=== PATIENT | female | born 2000 | race Caucasian/White ===

== ENCOUNTER 2020-07-28 15:37 | Day surgery (SDC) | payer BC ==
[~2020-07-28] VITALS: Ht 165.1 cm; Wt 59.0 kg
[2020-07-28] MEDS ORDERED: CHLORHEXIDINE 15 ML UDC MM ONE (16:00)
[2020-07-28] MEDS ORDERED: CHLORHEXIDINE 15 ML UDC ONE (16:05)
[2020-07-28] MEDS ORDERED: MISOPROSTOL 200 MCG TABLET ONE (16:12)
[2020-07-28] MEDS ORDERED: SILVER NITRATE STICK TP ONE ×2 (16:13→19:20)
[2020-07-28] MEDS ORDERED: METHYLERGONOVINE 0.2 MG/ML IM ONE (16:13)
[2020-07-28] MEDS ORDERED: OXYTOCIN 10 UNITS/ML, 1ML ONE (16:13)
[2020-07-28 16:16] LABS: MEAN CORPUSCULAR HEMOGLOBIN 30.7 pg (27.0-34.8); MEAN CORPUSCULAR HGB CONC 34.7 g/dL (32.4-35.8); MEAN PLATELET VOLUME 6.9 fL (7.4-10.4); PLATELET COUNT 246 x10^3/uL (130-400); RED BLOOD COUNT 4.68 x10^6/uL (3.82-5.3); RED CELL DISTRIBUTION WIDTH 12.3 % (9.6-15.2)
[2020-07-28 16:21] VITALS: BP 117/77
[2020-07-28] MEDS ORDERED: LIDOCAINE-MPF 1%, 2ML INFIL ONE (16:30)
[2020-07-28] MEDS ORDERED: LACTATED RINGERS 1,000 ML IV SCH (16:30)
[2020-07-28 16:44] LABS: MD YES
[2020-07-28 17:03] LABS: BAND#(MANUAL) 0.07 x10^3/uL; BANDS%(MANUAL) 1 % (0-7); EOS#(MANUAL) 0.07 x10^3/uL (0.0-0.4); EOS% (MANUAL) 1 % (1-7); LYMPH#(MANUAL) 1.45 x10^3/uL (1-3.4); LYMPHS% (MANUAL) 22 % (22-44); METAMYELOCYTES# (MANUAL) 0.07 x10^3/uL (0-0); METAMYELOCYTES% (MANUAL) 1 % (0-1); MONOS#(MANUAL) 0.46 x10^3/uL (0.3-2.7); MONOS% (MANUAL) 7 % (2-9); SEG#(MANUAL) 4.49 x10^3/uL (1.8-6.8); SEGS% (MANUAL) 68 % (42-75)
[2020-07-28 17:04] LABS: <PLATELET ESTIMATE> ADEQUATE; <PLT MORPHOLOGY> NORMAL PLT MORPH; <RBC MORPHOLOGY> NORMAL
[2020-07-28] MEDS ORDERED: FENTANYL PF 100 MCG/2ML ONE ×2 (18:04→20:02)
[2020-07-28] MEDS ORDERED: MIDAZOLAM 1 MG/ML, 2ML ONE (18:04)
[2020-07-28] MEDS ORDERED: PROPOFOL 50 ML ONE ×2 (18:06→19:02)
[2020-07-28] MEDS ORDERED: METOCLOPRAMIDE 5 MG/ML, 2ML ONE (18:50)
[2020-07-28] MEDS ORDERED: CEFAZOLIN 1,000 MG ONE (18:50)
[2020-07-28] MEDS ORDERED: ONDANSETRON 2MG/ML, 2ML ONE (18:50)
[2020-07-28] MEDS ORDERED: DEXAMETHASONE 4 MG/ML, 1ML ONE (18:50)
[2020-07-28] MEDS ORDERED: MISOPROSTOL 200 MCG TABLET PR ONE (19:20)
[2020-07-28] MEDS ORDERED: IBUP-1222 PO (19:49)
[2020-07-28] MEDS ORDERED: OXYC1TAB14 PO (19:49)
[2020-07-28] MEDS ORDERED: ACETAMINOPHEN 325 MG TABLET ONE (19:56)
[2020-07-28] MEDS ORDERED: OXYcodone 5 MG/5 ML ORAL.SOL UDC ONE (19:57)
[2020-07-28] MEDS ORDERED: FENTANYL PF 100 MCG/2ML IV PRN (20:00)
[2020-07-28] MEDS ORDERED: MEPERIDINE/PF 25MG/0.5ML IVPush PRN (20:00)
[2020-07-28] MEDS ORDERED: ACETAMINOPHEN 325 MG TABLET PO PRN (20:00)
[2020-07-28] MEDS ORDERED: LORazepam 2 MG/ML, 1ML IVPush PRN (20:00)
[2020-07-28] MEDS ORDERED: hydrALAzine 20 MG/ML, 1ML IV PRN (20:00)
[2020-07-28] MEDS ORDERED: EPHEDRINE 50 MG/ML, 1ML IVPush PRN (20:00)
[2020-07-28] MEDS ORDERED: METHOCARBAMOL 1,000 MG in DEXTROSE 5% 100 ML IV PRN (20:00)
[2020-07-28] MEDS ORDERED: LABETALOL 5MG/ML, 20ML IV PRN (20:00)
[2020-07-28] MEDS ORDERED: PROMETHAZINE 25 MG/ML, 1ML IVPush PRN (20:00)
[2020-07-28] MEDS ORDERED: ONDANSETRON 2MG/ML, 2ML IVPush PRN (20:00)
[2020-07-28] MEDS ORDERED: HYDROmorphone 1 MG/ML, 1ML INJ IVPush PRN (20:00)
[2020-07-28] MEDS ORDERED: OXYcodone 5 MG/5 ML ORAL.SOL UDC PO PRN (20:00)
== END 2020-07-28 21:30 | disposition home or self-care (01) ==
LOC: OR 15:37
PROVIDERS: ATTEND Obstetrics & Gynecology
DX: O02.1 Missed abortion (principal); F32.9 Major depressive disorder, single episode, unspecified; F41.9 Anxiety disorder, unspecified; Z79.899 Other long term (current) drug therapy
CPT/HCPCS: 36415; 59820; 85025; 86850; 86900; 88305; J0690; J1100; J2210; J2250; J2405; J2704; J2765; J3010; J2590

== ENCOUNTER 2021-02-03 03:46 | Emergency (ER) | payer BC ==
[~2021-02-03] VITALS: Ht 165.1 cm; Wt 56.7 kg
[~2021-02-03 03:46] MED LIST: IBUP-1222 PO; OXYC1TAB12 PO
--- NOTE | 2021-02-03 04:19 | NUR ---
SPARKER AND PATCHER: PT. AMBULATORY TO ROOM WITH STEADY GAIT. BSC PROVIDED. CLEAN CATCH UA INSTRUCTIONS ALSO PROVIDED TO PT.
[2021-02-03 05:20] LABS: MICROSCOPIC NOT IND
[2021-02-03] MEDS ORDERED: ONDANSETRON 2MG/ML, 2ML IVPush ONE (05:30)
[2021-02-03] MEDS ORDERED: SODIUM CHLORIDE 0.9% 1,000ML IVBOLUS ONE (05:30)
[2021-02-03] MEDS ORDERED: MORPHINE SULFATE 4 MG/ML, 1ML IVPush PRN (05:30)
[2021-02-03 05:32] LABS: BASOPHILS % (AUTO) 1 % (0-1); EOSINOPHILS % (AUTO) 1 % (1-7); LYMPHOCYTES % (AUTO) 30 % (22-44); MEAN CORPUSCULAR HEMOGLOBIN 30.9 pg (27.0-34.8); MEAN CORPUSCULAR HGB CONC 34.9 g/dL (32.4-35.8); MEAN PLATELET VOLUME 7.1 fL (7.4-10.4); MONOCYTES % (AUTO) 8 % (2-9); NEUTROPHILS % (AUTO) 60 % (42-75); PLATELET COUNT 201 x10^3/uL (130-400); RED BLOOD COUNT 4.39 x10^6/uL (3.82-5.3); RED CELL DISTRIBUTION WIDTH 12.7 % (9.6-15.2)
[2021-02-03] MEDS ORDERED: MORPHINE SULFATE 4 MG/ML, 1ML ONE (05:34)
[2021-02-03] MEDS ORDERED: ONDANSETRON 2MG/ML, 2ML ONE (05:34)
[2021-02-03 05:41] LABS: ALANINE AMINOTRANSFERASE 13 U/L (12-78); ALBUMIN 3.5 g/dL (3.4-5.0); ANION GAP 4 mmol/L (5-15); CALCIUM 8.4 mg/dL (8.5-10.1); CHLORIDE 109 mmol/L (98-107); CREATININE 0.54 mg/dL (0.55-1.02)
[2021-02-03 05:46] LABS: ALKALINE PHOSPHATASE 75 U/L (45-117); TOTAL PROTEIN 6.8 g/dL (6.4-8.2)
[2021-02-03] MEDS ORDERED: KETOROLAC 30 MG/1 ML ONE (06:24)
[2021-02-03] MEDS ORDERED: KETOROLAC 30 MG/1 ML IVPush ONE (06:30)
--- NOTE | 2021-02-03 07:29 | NUR ---
ASSUMING CARE OF PATIENT AFTER BEDSIDE REPORT FROM BERTIN MENDOZA. PT RESTING IN BED. NADN. W[place]ACE.
[2021-02-03 09:19] VITALS: BP 110/66
--- NOTE | 2021-02-03 09:20 | NUR ---
PT RESTING IN BED. UNABLE TO PROVIDE STOOL SAMPLE. VSS. HOU.
== END 2021-02-03 11:39 | disposition home or self-care (01) ==
LOC: ED 09:25
DX: R19.7 Diarrhea, unspecified (principal); R10.30 Lower abdominal pain, unspecified
CPT/HCPCS: 36415; 80053; 81003; 83690; 84703; 85025; 96361; 96374; 96375; 99284; J1885; J2405; J7030